=== PATIENT | female | born 1980 | race Caucasian/White ===

== ENCOUNTER 2023-09-28 11:36 | Outpatient (CLI) | payer OTHER, SELFPAY | END 2023-09-28 11:37 | disposition home or self-care (01) | LOC: ANHLAB 11:38 | PROVIDERS: PCP Family Medicine Sports Medicine; Visit Provider Physician Assistant | DX: R05.9 Cough, unspecified (principal) | CPT/HCPCS: 36415; 82785; 86003 ==

== ENCOUNTER 2023-10-12 09:42 | Outpatient (CLI) | payer OTHER, SELFPAY ==
--- NOTE | ~2023-10-12 | CT_ITS ---
EXAMINATION: CT diagnostic chest wo con DATE: 10/12/2023 10:02 INDICATION: Cough TECHNIQUE: Computed tomography (CT) of the chest was performed without intravenous contrast. The dose -length product (DLP) was 191.44 mGy-cm. Automated exposure control and iterative reconstruction tech nique were employed. COMPARISON: None FINDINGS: The lungs are free of acute opacities. No pleural effusion or pneumothorax. No pathological ly enlarged thoracic lymph nodes are identified. The heart size is normal. The visualized osseous str uctures are unremarkable. IMPRESSION: 1. No CT correlate for the patient's symptoms. Reviewed, dictated and finalized at location B. [employer]
== END 2023-10-12 09:43 | disposition home or self-care (01) ==
LOC: ANHIMG 09:45
PROVIDERS: PCP Family Medicine Sports Medicine; Visit Provider Physician Assistant
DX: R05.9 Cough, unspecified (principal)
CPT/HCPCS: 71250